=== PATIENT | male | born 1980 | race Caucasian/White ===

== ENCOUNTER 2021-05-11 23:26 | Emergency (ER) | payer BC, OTHER ==
[2021-05-12] MEDS ORDERED: Penicillin V Potassium 500 MG Tab PO STA (00:43)
[2021-05-12] MEDS ORDERED: Ketorolac 30 MG/ML SDV IM ONE (00:43)
[2021-05-12 01:15] VITALS: BP 133/71; PULSE 71
== END 2021-05-12 01:15 | disposition home or self-care (01) ==
LOC: MW.ED 23:26
DX: K05.6 Periodontal disease, unspecified (principal); Z88.5 Allergy status to narcotic agent; Z86.16 Personal history of COVID-19
CPT/HCPCS: 96372; 99282; 99283; A9270-GY; J1885

== ENCOUNTER 2022-07-07 21:37 | Emergency (ER) | payer BC ==
[2022-07-07 23:50] VITALS: BP 140/80; PULSE 62
== END 2022-07-07 23:48 | disposition home or self-care (01) ==
LOC: MW.ED 21:37
DX: S92.352A Displaced fracture of fifth metatarsal bone, left foot, initial encounter for closed fracture (principal); S93.402A Sprain of unspecified ligament of left ankle, initial encounter; Z88.5 Allergy status to narcotic agent; Z86.16 Personal history of COVID-19; X50.1XXA Overexertion from prolonged static or awkward postures, initial encounter; Y99.0 Civilian activity done for income or pay
CPT/HCPCS: 73610-26-LT; 73610-LT; 73620-26-LT; 73620-LT; 99282; 99283